=== PATIENT | female | born 1990 | race Caucasian/White ===

== ENCOUNTER → 2017-03-16 | Outpatient (CLI) | payer OTHER | LOC: M LRY 08:40 | DX: J18.9 Pneumonia, unspecified organism (principal) | CPT/HCPCS: 71046 ==

== ENCOUNTER → 2017-04-06 | Outpatient (CLI) | payer OTHER | LOC: M LRY 16:34 | DX: M79.631 Pain in right forearm (principal); S59.901A Unspecified injury of right elbow, initial encounter; X58.XXXA Exposure to other specified factors, initial encounter; Y92.89 Other specified places as the place of occurrence of the external cause | CPT/HCPCS: 73080; 96372 ==